=== PATIENT | female | born 1960 | race Caucasian/White ===

== ENCOUNTER 2019-06-18 05:23 | Observation (INO) ==
[2019-06-18 05:48] LABS: BASOPHILS % (AUTO) 0.6 % (0.2-1.0); EOSINOPHILS # (AUTO) 0.2 x10^3/uL (0.0-0.2); EOSINOPHILS % (AUTO) 3.6 % (0.9-2.9); HEMATOCRIT 40.8 % (36.0-47.0); HEMOGLOBIN 13.9 g/dL (12.0-16.0); LYMPHOCYTES # (AUTO) 1.1 X10^3/uL (1.3-2.9); LYMPHOCYTES % (AUTO) 23.1 % (21.0-51.0); MEAN CORPUSCULAR HEMOGLOBIN 29.4 pg (27.0-34.0); MEAN CORPUSCULAR VOLUME 86.6 fL (80.0-100.0); MEAN PLATELET VOLUME 9.1 fL (7.4-11.0); MONOCYTES # (AUTO) 0.3 x10^3/uL (0.3-0.8); MONOCYTES % (AUTO) 5.3 % (0.0-13.0); NEUTROPHILS # (AUTO) 3.2 x10^3/uL (2.2-4.8); NEUTROPHILS % (AUTO) 67.4 % (42.0-75.0); PLATELET COUNT 200 X10^3/uL (150.0-450.0); RED BLOOD COUNT 4.71 X10^6/uL (3.5-5.4); RED CELL DISTRIBUTION WIDTH 13.9 % (11.6-16.5); WHITE BLOOD COUNT 4.8 X10^3/uL (3.6-10.0)
[2019-06-18 05:59] LABS: ALANINE AMINOTRANSFERASE 40 Units/L (12-78); ALBUMIN 3.6 g/dL (3.4-5.0); ALKALINE PHOSPHATASE 55 Units/L (46-116); ASPARTATE AMINO TRANSFERASE 17 Units/L (15-37); BLOOD UREA NITROGEN 18 mg/dL (7-18); CALCIUM 8.9 mg/dL (8.5-10.1); CARBON DIOXIDE 26.7 mmol/L (21-32); CHLORIDE 103 mmol/L (98-107); COR NA(FOR HYPERGLY) 141 mmol/L (136-145); SODIUM 140 mmol/L (136-145); TOTAL PROTEIN 6.8 g/dL (6.4-8.2); eGFR NON BLACK RACES > 60 (>60)
[2019-06-18] MEDS ORDERED: PHENERGAN INJ 25 MG IM ONE ×2 (06:03→06:06)
[2019-06-18] MEDS ORDERED: ANTIVERT TAB 25 MG PO ONE (06:03)
[2019-06-18] MEDS ORDERED: ANTIVERT TAB 25 MG ONE (06:06)
--- NOTE | 2019-06-18 06:23 | DR.GENAD ---
HPI Time Seen Time Seen by Provider: 06/18/19 05:57 PCP Primary Care Physician: laura HPI Comment HPI Comment: PATIENT IS 58YR OLD FEMALE IN ER VIA EMS BECAUSE OF DIZZINESS, VERTIGO, WEAKNESS AND NAUSEA. PATIENT TO BED LAST NIGHT NOT FEELING WELL. WOKE UP DURING THE NIGHT DIZZY. AT ONE POINT SHE WAS SO DIZZY THAT SHE CRAWED TO THE BATHROOM. NO FEVER. DENIES EYE PAIN OR EAR SYMPTOMS. NO TRAUMA. Complaint/Symptoms Chief Complaint Doctors Comments: INCREASING DIZZINESS AND WEAKNESS WITH NAUSEA TIMES SEVERAL HOURS. Chief Complaint:: PT STATES" I'M SICK" EMS CALLED TO A DIZZY AND WEAK COVID-19 Coronavirus risk:travel/contact w/high risk person: No Has patient experienced Coronavirus symptoms: No Nurses notes reviewed Nurses Notes Review: Yes Source History Provided: Patient Mode of Arrival Mode of Arrival: EMS Timing Onset of Chief Complaint: 06/18/19 Came on: Suddenly Duration Duration: Constant Duration: Hours Severity Severity: Severe Modifying Factors Worsens:: OPENING EYES OR MOVING HER HEAD. Improves:: CLOSING HER EYES AND LAYING STILL. Associated Signs and Symptoms Associated Signs and Symptoms: WEAKNESS. Other History Other History: HISTORY HYPERTENSION. PMH PMH Past Medical History: Yes Past Medical History: GERD, Hypertension and PUD Past Surgical History: Yes Surgical History: Cholecystectomy Family History History of Family Medical Conditions: No Social History Does any household member use tobacco: No Alcohol Use: None Do you use any recreational Drugs:: No Lives With: Family Lives Where: Home Travel Risk Coronavirus risk:travel/contact w/high risk person: No Has patient experienced Coronavirus symptoms: No Infectious screening In the last 2 months have you had wt loss of >10#?: NO Have you had fever, night sweats or hemotysis?: No Have you traveled outside the country in the last 6 months?: No Isolation: Standard ROS Review of Systems Constitutional: See HPI, Weakness and Fatigue; negative Fever Eyes: No Symptoms Reported and See HPI ENTM: No Symptoms Reported and See HPI; negative Ear Pain, Nose Discharge, Nose Congestion and Throat Pain Respiratoy: See HPI and Short of Breath; negative Productive Cough and Wheezing Cardiovascular: No Symptoms Reported and See HPI; negative Chest Pain, Edema and Palpitations Gastrointestinal/Abdominal: No Symptoms Reported, See HPI and Nausea; negative Abdominal Pain, Diarrhea and Vomiting Genitourinary: No Symptoms Reported and See HPI; negative Dysuria, Frequency and Hematuria Neurological: See HPI, Headache, Weakness and Dizziness Musculoskeletal: No Symptoms Reported and See HPI; negative Back Pain Integumentary: No Symptoms Reported, See HPI and Change in Color; negative Rash and Juandice Hematologic/Lymphatic: No Symptoms Reported and See HPI; negative Easy Bruising and Swollen Glands Endocrine: No Symptoms Reported; negative Increased Thirst and Increased Urine Psychiatric: No Symptoms Reported and See HPI All Other Systems: Reviewed and Negative PE Vital Signs Vitals: Temperature 97.4 F Pulse Rate [Left Brachial] 66 Pulse Rate 60 Respiratory Rate 16 Blood Pressure [Right Arm] 114/69 Blood Pressure 147/78 O2 Sat by Pulse Oximetry 98 General Limitations: No Limitations General Appearance: Alert and In No Apparent Distress Head Head Exam: Normal Inspection, Atraumatic and Normocephalic Eyes Eye exam: Normal Appearance, PERRL and Scleral Icterus; negative EOMI and Conjunctival Injection ENT ENT Exam: Normal Exam, Normal Oropharynx, Normal External Ear Exam and TM's Normal Bilaterally External Ear Exam: Normal External Inspection; negative Mastoid Tenderness TM/Canal Exam: Bilateral: Normal Nose Exam: Normal Nose Exam; negative Sinus Tenderness, Nasal Deviation and Septal Hematoma Mouth Exam: Normal Inspection; negative Tongue Swelling and Laceration Throat Exam: Normal Inspection; negative Tonsillar Erythema, Tonsillomegaly and Tonsillar Exudate Neck Neck Exam: Normal Inspection and Trachea Midline; negative Tenderness and Lymphadenopathy Chest Chest Inspection: Normal Inspection and Symmetric Chest Wall Rise; negative Tenderness Respiratory Respiratory Exam: Normal Lung Sounds Bilat; negative Accessory Muscle Use, Chest Wall Tenderness and Respiratory Distress Respiratory Exam: Bilateral: Clear to Auscultation Cardiovascular Cardiovascular Exam: Regular Rate, Normal Rhythm and Normal Heart Sounds; negative Systolic Murmur and Diastolic Murmur Abdominal Exam Abdominal Exam: Normal Inspection, Normal Bowel Sounds and Soft; negative Tenderness Extremities Extremities Exam: Normal Inspection and Normal Capillary Refill; negative Tenderness, Edema and Calf Tenderness Back Back Exam: Normal Inspection; negative (R) CVA Tenderness and (L) CVA Tenderness Neurologic Neurological Exam: Alert, Oriented X3 and CN II-XII Intact; negative Motor Sensory Deficit Psychiatric Psychiatric Exam: Normal Affect and Normal Mood Skin Skin Exam: Warm, Dry, Intact and Normal Color MDM Differential Diagnosis Differential Diagnosis: VERTIGO, CVA, BRAIN MASS, COURSE Treatment Treatment: SEE ORDERS. Consultation Consultation Comments: DISCUSSED PATIENT WITH DR. MUÑOZ. HE WILL ADMIT PATIENT. [facility] Labs Reviewed Result Diagrams: 06/18/19 05:41 06/18/19 05:41 Laboratory: WBC 4.8 X10^3/uL (3.6-10.0) 06/18/19 05:41 RBC 4.71 X10^6/uL (3.5-5.4) 06/18/19 05:41 Hgb 13.9 g/dL (12.0-16.0) 06/18/19 05:41 Hct 40.8 % (36.0-47.0) 06/18/19 05:41 MCV 86.6 fL (80.0-100.0) 06/18/19 05:41 MCH 29.4 pg (27.0-34.0) 06/18/19 05:41 MCHC 34.0 g/dL (33.0-35.0) 06/18/19 05:41 RDW 13.9 % (11.6-16.5) 06/18/19 05:41 Plt Count 200 X10^3/uL (150.0-450.0) 06/18/19 05:41 MPV 9.1 fL (7.4-11.0) 06/18/19 05:41 Neut % (Auto) 67.4 % (42.0-75.0) 06/18/19 05:41 Lymph % (Auto) 23.1 % (21.0-51.0) 06/18/19 05:41 [place] % (Auto) 5.3 % (0.0-13.0) 06/18/19 05:41 Eos % (Auto) 3.6 % (0.9-2.9) H 06/18/19 05:41 Baso % (Auto) 0.6 % (0.2-1.0) 06/18/19 05:41 Neut # (Auto) 3.2 x10^3/uL (2.2-4.8) 06/18/19 05:41 Lymph # (Auto) 1.1 X10^3/uL (1.3-2.9) L 06/18/19 05:41 [place] # (Auto) 0.3 x10^3/uL (0.3-0.8) 06/18/19 05:41 Eos # (Auto) 0.2 x10^3/uL (0.0-0.2) 06/18/19 05:41 Baso # (Auto) 0.0 X10^3/uL (0.0-0.1) 06/18/19 05:41 Absolute Nucleated RBC 0.0 /100WBC 06/18/19 05:41 Sodium 140 mmol/L (136-145) 06/18/19 05:41 Corrected Sodium 141 mmol/L (136-145) 06/18/19 05:41 Potassium 4.0 mmol/L (3.5-5.1) 06/18/19 05:41 Chloride 103 mmol/L (98-107) 06/18/19 05:41 Carbon Dioxide 26.7 mmol/L (21-32) 06/18/19 05:41 BUN 18 mg/dL (7-18) 06/18/19 05:41 Creatinine 1.00 mg/dL (0.55-1.02) 06/18/19 05:41 Est GFR (MDRD) Af Amer > 60 (>60) 06/18/19 05:41 Est GFR (MDRD) Non-Af > 60 (>60) 06/18/19 05:41 Glucose 149 mg/dL (65-99) H 06/18/19 05:41 Calcium 8.9 mg/dL (8.5-10.1) 06/18/19 05:41 Corrected Calcium TNP 06/18/19 05:41 Total Bilirubin 0.30 mg/dL (0.2-1.0) 06/18/19 05:41 AST 17 Units/L (15-37) 06/18/19 05:41 ALT 40 Units/L (12-78) 06/18/19 05:41 Alkaline Phosphatase 55 Units/L (46-116) 06/18/19 05:41 Creatine Kinase 97 Units/L (26-192) 06/18/19 05:41 CK-MB (CK-2) < 1.0 ng/mL (0-4.0) 06/18/19 05:41 CK/CKMB % Calc 1.0 % (<4) 06/18/19 05:41 Troponin I < 0.02 ng/mL (0-1.5) 06/18/19 05:41 Total Protein 6.8 g/dL (6.4-8.2) 06/18/19 05:41 Albumin 3.6 g/dL (3.4-5.0) 06/18/19 05:41 Globulin 3.2 g/dL (2.5-4.5) 06/18/19 05:41 Albumin/Globulin Ratio 1.1 Ratio (1.1-2.1) 06/18/19 05:41 EKG Rate: 59 [place]: Normal Rhythm: NSR (LOW VOLTAGE.) Block: None Hypertrophy: None ST: Normal Opioid Opioid Risk Tool Age (Luis box if 16-45): No History of Preadolescent Sexual Abuse: No Total: 0 Total Score Risk Category: Low Risk Copyright: Gordo DEY predicting aberrant behaviors Diagnosis Discharge Problem: Dizziness, Ataxia, Vertigo
[2019-06-18 06:32] LABS: CREATINE KINASE 97 Units/L (26-192); CREATINE KINASE MB < 1.0 ng/mL (0-4.0); TROPONIN I < 0.02 ng/mL (0-1.5)
--- NOTE | 2019-06-18 06:40 | RAD ---
HISTORYShortness of breathSTUDYCHEST, 1 VIEWCOMPARISONNoneFINDINGSThe heart is within normal limits in size. The cal are normal. The lung gates are clear. No pleural effusions are identified. Bony thorax is unremarkable.IMPRESSIONNo significant abnormality identifiedElectronically signed by: ZACK DIETRICH (Jun 18, 2019 06:39:08)
--- NOTE | 2019-06-18 06:47 | CT ---
HISTORYDizzinessSTUDYBRAIN W/O CONTechnique: Axial noncontrast images with coronal and sagittal reformats. Dose reduction procedures were used with mA/kv adjusted for body size.COMPARISONNoneFINDINGSThe ventricles are normal in size shape and position. There are no areas of abnormal attenuation to suggest recent or remote CVA, hemorrhage, mass lesion, or extra-axial fluid collection. The visualized sinuses are clear. The calvarium is intact.IMPRESSIONNo significant intracranial abnormality identifiedElectronically signed by: ZACK DIETRICH (Jun 18, 2019 06:46:35)
[2019-06-18] MEDS ORDERED: VALIUM PO ONE ×2 (09:29→10:16)
[2019-06-18] MEDS ORDERED: DECADRON INJ IM ONE ×2 (09:30→10:16)
[2019-06-18] MEDS ORDERED: ANTIVERT TAB 25 MG PO PRN (09:39)
[2019-06-18] MEDS ORDERED: NS 1000 ML 1,000 ML IV SCH ×2 (09:39→10:00)
[2019-06-18] MEDS ORDERED: PHENERGAN INJ 25 MG IM PRN (09:39)
[2019-06-18 10:29] VITALS: BMI 44.6
[2019-06-18] MEDS: NS 1000 ML 1,000 ML IV SCH ×2 (10:52→22:50)
--- NOTE | 2019-06-18 13:34 | DR.H&P ---
H&P - History & Physical for Day of: H&P Date: 06/18/19 - Chief Complaint Chief Complaint: DIZZINESS, NV - History of Present Illness History of Present Illness: PT IS 58 WF ER ADMISSION WITH CO SUDDEN ONSET OF INTRACTABLE DIZZINESS. PT WAS AT HOME AND STATED SHE FELT TIRED AND TOOK A NAP AND AFTER ROLLING OVER IN BED DIZZINESS STARTED WITH N/V. NO HX OF VERITIGO. PT HAS PMH OF HTN. REPORTS SHE HAD NOT HAD ANY FEVER OR CCC. PT REPORTS SHE SEEN DR Sade [place] FOR CHECK UP LAST MONTH AND HAS NO NEW COMPLAINTS. PT HAD CT HEAD IN ER, NEGATIVE. PT ADMITTED FOR TREATMENT OF ACUTE ILLNESS. - Past Medical History Past Medical History: Hypertension, PUD, GERD - Past Surgical History Surgical History: Cholecystectomy - Family History Family Medical History: Hypertension - Social History Does patient currently use any type of tobacco product: No Have you used tobacco products in the last 12 months: No Type of Tobacco Use: None Does any household member use tobacco: No Alcohol Use: None Drug Use: None - Medications Home Medications: Penicillins Allergy (Verified 06/18/19 05:33) - Review of Systems Constitutional: Malaise Eyes: No Symptoms Reported ENT: No Symptoms Reported Respiratory: No Symptoms Reported Cardiovascular: denies: Chest Pain, Edema Gastrointestinal: No Symptoms Reported Genitourinary: No Symptoms Reported Musculoskeletal: No Symptoms Reported Skin: No Symptoms Reported Neurological: Other (DIZZINESS) - Physical Exam Vital Signs: Temperature 98.1 F Pulse Rate [Left Brachial] 64 Pulse Rate 60 Respiratory Rate 18 Blood Pressure [Right Arm] 109/70 Blood Pressure 147/78 O2 Sat by Pulse Oximetry 98 Oriented: Normal Eyes: Normal Ear: Normal Nose: Normal Throat: Normal Respiratory: Clear Throughout Cardiovascular: Normal : Normal Auscultation: Bowel Sounds: Normal Palpation: Normal Tenderness: Normal Skin: Normal Musculoskeletal: Normal Psychiatric: Anxiety Affect: Anxious Speech Pattern: Clear, Appropriate. negative: Slurred - Assessment/Plan (1) Dizziness Status: Acute Plan: INTRACTABLE, ADMIT SERIAL EKG AND CE. CT HEAD ON ADMISSION. OBTAIN LAST CARDIOLOGY REPORTS. CXR ON ADMISSION, ADMISSION LABS, GENTLE IV HYDRATION. BP MONITORING, BS CONTROL (2) Hypertension Status: Acute (3) Vertigo Status: Acute - Allergies Allergies/Adverse Reactions: Allergies Allergy/AdvReac Type Severity Reaction Status Date / Time Penicillins Allergy Verified 06/18/19 05:33
[2019-06-18 13:56] LABS: CREATINE KINASE 102 Units/L (26-192); CREATINE KINASE MB < 1.0 ng/mL (0-4.0); TROPONIN I < 0.02 ng/mL (0-1.5)
[2019-06-18] MEDS ORDERED: ANTIVERT TAB 25 MG PO SCH (14:00)
[2019-06-18] MEDS: ANTIVERT TAB 25 MG PO SCH ×2 (14:22→21:24)
--- NOTE | 2019-06-18 15:46 | VAS ---
HISTORYacute severe dizzinessSTUDYCAROTID USCOMPARISONNone.TECHNIQUEMultiple aldana scale and color flow Doppler images of the right and left carotid arterial system were obtained. The vertebral arterial system was evaluated as well.FINDINGSNormal color flow Doppler is seen throughout the right and left carotid arterial system. Maximum internal carotid artery velocity of [51] centimeters/second on the right and maximum internal carotid artery velocity on the left of [71] centimeters/second. Right ICA/CCA ratio of [0.73] and left ICA/CCA ratio [0.81]. [No significant plaque burden.][No hemodynamically significant stenosis is seen based on velocity criteria]. [The right and left vertebral arteries demonstrate antegrade flow].IMPRESSIONNo hemodynamically significant stenosisElectronically signed by: SHEREE BONILLA (Jun 18, 2019 15:44:55)
[2019-06-18 19:19] LABS: CREATINE KINASE 105 Units/L (26-192); CREATINE KINASE MB < 1.0 ng/mL (0-4.0); TROPONIN I < 0.02 ng/mL (0-1.5)
[2019-06-18 19:48] LABS: BILIRUBIN,URINE NEGATIVE (NEGATIVE); BLOOD/HEMOGLOBIN,URINE NEGATIVE (NEGATIVE); GLUCOSE, URINE 4+ (NEGATIVE); KETONES,URINE 1+ (NEGATIVE); LEUKOCYTE ESTERASE ,URINE NEGATIVE (NEGATIVE); NITRITES,URINE NEGATIVE (NEGATIVE); PROTEIN,URINE NEGATIVE (NEGATIVE); UROBILINOGEN,URINE NORMAL (NORMAL)
[2019-06-18 19:53] LABS: APPEARANCE,URINE CLEAR (CLEAR); COLOR,URINE PALE YELLOW (YELLOW)
[2019-06-19] MEDS: NS 1000 ML 1,000 ML IV SCH ×2 (01:10→15:30)
[2019-06-19 05:05] LABS: BASOPHILS % (AUTO) 0.1 % (0.2-1.0); EOSINOPHILS % (AUTO) 0.1 % (0.9-2.9); HEMATOCRIT 38.8 % (36.0-47.0); HEMOGLOBIN 13.1 g/dL (12.0-16.0); LYMPHOCYTES # (AUTO) 0.8 X10^3/uL (1.3-2.9); LYMPHOCYTES % (AUTO) 8.4 % (21.0-51.0); MEAN CORPUSCULAR HEMOGLOBIN 29.7 pg (27.0-34.0); MEAN CORPUSCULAR HGB CONC 33.8 g/dL (33.0-35.0); MEAN CORPUSCULAR VOLUME 87.8 fL (80.0-100.0); MEAN PLATELET VOLUME 9.8 fL (7.4-11.0); MONOCYTES # (AUTO) 0.4 x10^3/uL (0.3-0.8); MONOCYTES % (AUTO) 3.9 % (0.0-13.0); NEUTROPHILS % (AUTO) 87.5 % (42.0-75.0); PLATELET COUNT 219 X10^3/uL (150.0-450.0); RED BLOOD COUNT 4.42 X10^6/uL (3.5-5.4); WHITE BLOOD COUNT 9.2 X10^3/uL (3.6-10.0)
[2019-06-19 05:21] LABS: ALANINE AMINOTRANSFERASE 33 Units/L (12-78); ALBUMIN 3.3 g/dL (3.4-5.0); ALKALINE PHOSPHATASE 47 Units/L (46-116); ASPARTATE AMINO TRANSFERASE 15 Units/L (15-37); BLOOD UREA NITROGEN 13 mg/dL (7-18); CALCIUM 8.6 mg/dL (8.5-10.1); CHLORIDE 107 mmol/L (98-107); COR CA(FOR HYPOALB) 9.2 mg/dL (8.5-10.1); COR NA(FOR HYPERGLY) 144 mmol/L (136-145); CREATININE 0.82 mg/dL (0.55-1.02); MAGNESIUM 1.8 mg/dL (1.7-2.9); SODIUM 143 mmol/L (136-145); TOTAL PROTEIN 6.4 g/dL (6.4-8.2); eGFR NON BLACK RACES > 60 (>60)
[2019-06-19] MEDS: ANTIVERT TAB 25 MG PO SCH ×3 (05:33→20:08)
[2019-06-19] MEDS: ZEBETA TAB 5 MG PO SCH (10:31)
[2019-06-19] MEDS ORDERED: ROCEPHIN VIAL 1 GRAM 1 G in NS 100 ML IV + SPIKE MINIBAG* 100 ML IV SCH (11:30)
[2019-06-19] MEDS ORDERED: BENADRYL INJ 50 MG VIAL IVP PRN (13:42)
[2019-06-19] MEDS ORDERED: PEPCID 20 MG IV PREMIX* 20 MG/50 ML BAG IV ONE (13:44)
[2019-06-19] MEDS ORDERED: SOLU-Medrol 125 MG VIAL IVP ONE (13:44)
[2019-06-19] MEDS ORDERED: ZOFRAN INJ 4 MG VIAL IVP ONE (13:45)
[2019-06-19] MEDS ORDERED: BENADRYL INJ 50 MG VIAL IV ONE (13:47)
[2019-06-19] MEDS ORDERED: NORVASC TAB 5 MG PO SCH (21:00)
[2019-06-20] MEDS: NS 1000 ML 1,000 ML IV SCH (04:15)
[2019-06-20] MEDS: ANTIVERT TAB 25 MG PO SCH (05:17)
[2019-06-20 05:52] LABS: BASOPHILS % (AUTO) 0.2 % (0.2-1.0); HEMATOCRIT 35.9 % (36.0-47.0); HEMOGLOBIN 12.2 g/dL (12.0-16.0); LYMPHOCYTES % (AUTO) 10.5 % (21.0-51.0); MEAN CORPUSCULAR HEMOGLOBIN 29.7 pg (27.0-34.0); MEAN CORPUSCULAR VOLUME 87.5 fL (80.0-100.0); MEAN PLATELET VOLUME 9.7 fL (7.4-11.0); MONOCYTES # (AUTO) 0.4 x10^3/uL (0.3-0.8); MONOCYTES % (AUTO) 3.8 % (0.0-13.0); NEUTROPHILS # (AUTO) 8.1 x10^3/uL (2.2-4.8); NEUTROPHILS % (AUTO) 85.5 % (42.0-75.0); PLATELET COUNT 197 X10^3/uL (150.0-450.0); RED CELL DISTRIBUTION WIDTH 14.1 % (11.6-16.5); WHITE BLOOD COUNT 9.5 X10^3/uL (3.6-10.0)
[2019-06-20 06:05] LABS: ALANINE AMINOTRANSFERASE 34 Units/L (12-78); ALBUMIN 3.2 g/dL (3.4-5.0); ALKALINE PHOSPHATASE 45 Units/L (46-116); ASPARTATE AMINO TRANSFERASE 15 Units/L (15-37); BLOOD UREA NITROGEN 14 mg/dL (7-18); CALCIUM 8.4 mg/dL (8.5-10.1); CARBON DIOXIDE 27.7 mmol/L (21-32); CHLORIDE 109 mmol/L (98-107); COR NA(FOR HYPERGLY) 145 mmol/L (136-145); CREATININE 0.82 mg/dL (0.55-1.02); SODIUM 144 mmol/L (136-145); TOTAL PROTEIN 6.1 g/dL (6.4-8.2); eGFR NON BLACK RACES > 60 (>60)
[2019-06-20] MEDS: ZEBETA TAB 5 MG PO SCH (09:10)
[2019-06-20] MEDS ORDERED: LEVSIN/MAALOX/LIDOC VISC PO ONE (10:01)
[2019-06-20 12:01] VITALS: BP 140/77
== END 2019-06-20 13:10 | disposition home or self-care (01) ==
LOC: MED/SURG 05:23 → ER 05:23 → MED/SURG 09:05
PROVIDERS: ADMIT Internal Medicine; ATTEND Internal Medicine
DX: R06.02 Shortness of breath; T36.1X5A Adverse effect of cephalosporins and other beta-lactam antibiotics, initial encounter; R51 Headache; K21.9 Gastro-esophageal reflux disease without esophagitis; J45.909 Unspecified asthma, uncomplicated; J01.90 Acute sinusitis, unspecified; R42 Dizziness and giddiness; R11.2 Nausea with vomiting, unspecified; R94.31 Abnormal electrocardiogram [ECG] [EKG]; K27.9 Peptic ulcer, site unspecified, unspecified as acute or chronic, without hemorrhage or perforation; H65.03 Acute serous otitis media, bilateral; I10 Essential (primary) hypertension